=== PATIENT | male | born 1965 | race Hispanic/Latino ===

== ENCOUNTER → 2021-07-27 | Outpatient (CLI) | payer BC | END | disposition home or self-care (01) | LOC: SHCH 08:28 | PROVIDERS: ATTEND Internal Medicine Cardiovascular Disease | DX: I11.9 Hypertensive heart disease without heart failure (principal); I25.10 Atherosclerotic heart disease of native coronary artery without angina pectoris; E78.5 Hyperlipidemia, unspecified | CPT/HCPCS: 93306 ==

== ENCOUNTER 2021-11-25 02:19 | Emergency (ER) | payer BC ==
[~2021-11-25] VITALS: Ht 175.3 cm; Wt 93.0 kg
[2021-11-25] MEDS ORDERED: ONDANSETRON 4MG INJ ONE (02:40)
[2021-11-25] MEDS ORDERED: ETOMIDATE 20MG VIAL ONE (02:41)
[2021-11-25] MEDS ORDERED: MORPHINE 2 MG SYG ONE (02:41)
[2021-11-25] MEDS ORDERED: ONDANSETRON 4MG INJ IVP ONE (03:00)
[2021-11-25] MEDS ORDERED: MORPHINE 4 MG SYG IVP ONE (03:00)
[2021-11-25] MEDS ORDERED: ETOMIDATE 20MG VIAL IVP SCH (03:00)
[2021-11-25] MEDS ORDERED: ACET-2079 PO (03:45)
[2021-11-25 03:54] VITALS: BP 138/101
== END 2021-11-25 03:56 | disposition home or self-care (01) ==
LOC: EDH 02:19
DX: S43.015A Anterior dislocation of left humerus, initial encounter (principal); I10 Essential (primary) hypertension; Z86.73 Personal history of transient ischemic attack (TIA), and cerebral infarction without residual deficits; Z95.1 Presence of aortocoronary bypass graft; W01.0XXA Fall on same level from slipping, tripping and stumbling without subsequent striking against object, initial encounter; X58.XXXA Exposure to other specified factors, initial encounter; Y93.89 Activity, other specified; Y92.89 Other specified places as the place of occurrence of the external cause; Y99.8 Other external cause status
CPT/HCPCS: 99285; 23650; 96374; 96375; 73030 ×2; J2405; J3490

== ENCOUNTER → 2023-04-04 | Outpatient (CLI) | payer BC ==
[~2023-04-04] MED LIST: ACET-2079 PO
== END | disposition home or self-care (01) ==
LOC: SHCH 10:03
PROVIDERS: ATTEND Internal Medicine Cardiovascular Disease
DX: I63.9 Cerebral infarction, unspecified (principal)
CPT/HCPCS: 93306

== ENCOUNTER → 2023-05-20 | Outpatient (CLI) | payer BC ==
[2023-05-20 16:30] LABS: CREATININE 1.5 mg/dL (0.5-1.5); POTASSIUM 4.4 mmol/L (3.5-5.1)
== END | disposition home or self-care (01) ==
LOC: LAB 13:48
PROVIDERS: ATTEND Internal Medicine Cardiovascular Disease
DX: I10 Essential (primary) hypertension (principal)
CPT/HCPCS: 36415; 80048